=== PATIENT | female | born 1965 | race Caucasian/White ===

== ENCOUNTER → 2016-12-14 | Outpatient (CLI) | payer OTHER ==
--- NOTE | 2016-12-14 16:53 | US ---
EXAMINATION TYPE: US kidneys/renal and bladder DATE OF EXAM: 12/14/2016 COMPARISON: US and CT CLINICAL HISTORY: E11.65 Diabetes Mellitus Type 2. Abnormal labs per patient EXAM MEASUREMENTS: Right Kidney: 13.5 x 6.8 x 6.9 cm Left Kidney: 13.0 x 6.8 x 4.9 cm Difficult scan due to pt morbid obesity Right Kidney: No evidence of hydro, difficult to visualize Left Kidney: No evidence of hydro, difficult to visualize Bladder: wnl Bilateral Jets seen: No Examination is technically difficult due to patient size. Limited views of both kidneys show no hydro nephrosis and no definite masses. The bladder was unremarkable. Neither ureteral jet was visualized. IMPRESSION: VERY LIMITED EXAMINATION DEMONSTRATING NO ACUTE ABNORMALITY.
== END | disposition home or self-care (01) ==
LOC: RADUSWWP 14:36
PROVIDERS: ATTEND Family Medicine
DX: E11.65 Type 2 diabetes mellitus with hyperglycemia (principal)
CPT/HCPCS: 76770